=== PATIENT | male | born 1955 | race Caucasian/White ===

== ENCOUNTER → 2019-08-23 | Outpatient (CLI) | payer MEDICARE, OTHER ==
[~2019-08-23] MED LIST: ALAVERT10 MG PO; ASPIRIN EC81 M1 PO; ASPIRIN325; B-121000 MCG PO; CENTRUM SILVER1 EAC4 PO; COLACE 100 MG100 MG; FISH OIL 1,0001 EAC5 PO; GLUCOPHAGE500 MG PO; GLUCOTROL5 MG PO; JANUVIA100 MG PO; LISINOPRIL40 MG PO; LOVASTAT40 PO; MOBIC15 MG PO; NEXIUM 40 MG CA40 M1; NORVASC10 MG PO; OMEPRAZOLE 20 M20 M1 PO; OXYCODONE HCL 55 MG; PANCRELIPASE; PERCOCET 5-3251 EACH; XARELTO10 MG
--- NOTE | 2019-08-23 13:53 | 2DMMODE ---
[place] [address] 2 D/M-MODE ECHOCARDIOGRAM Name: ELIE RODRIGUEZ JR Room: [facility]#: [id number] Admission: 08/23/19 Attend Phys: Jeannette Cevallos Discharge: Date of : 51 Date of Service: 08/23/19 1353 Report #: [id number] THIS REPORT FOR: cc: Jeannette Machado NP, Stefany NP Liston, Michael J. MD [facility] ~ APPROVED REPORT Study performed: 08/23/2019 09:18:43 EXAM: Comprehensive 2D, Doppler, and color-flow Echocardiogram Patient Location: Out-Patient BSA: 1.74 HR: 95 bpm BP: 120/70 mmHg Other Information Study Quality: Fair Indications Carotid / Retinal occlusion 2D Dimensions IVSd: 10.31 (7-11mm) LVOT Diam: 20.53 (18-24mm) LVDd: 36.33 mm PWd: 10.45 (7-11mm) Ascending Ao: 29.84 (22-36mm) LVDs: 21.25 (25-40mm) Aortic Root: 26.18 mm Volumes Left Atrial Volume (Systole) LA ESV Index: 15.00 mL/m2 Aortic Valve AoV Peak Eligio.: 1.14 m/s AO Peak Gr.: 5.22 mmHg LVOT Max P.92 mmHg AO Mean Gr.: 3.02 mmHg LVOT Mean P.15 mmHg LVOT Max V: 1.22 m/s AO V2 VTI: 17.81 cm LVOT Mean V: 0.83 m/s ALYX (VTI): 3.66 cm2 LVOT V1 VTI: 19.73 cm Mitral Valve E/A Ratio: 0.52 [place] [address] 2 D/M-MODE ECHOCARDIOGRAM Name: ELIE RODRIGUEZ JR Room: [facility]#: [id number] Admission: 08/23/19 Attend Phys: Jeannette Cevallos Discharge: Date of : 51 Date of Service: 08/23/19 1353 Report #: [id number] MV Decel. Time: 232.06 ms MV E Max Eligio.: 0.56 m/s MV PHT: 67.30 ms MVA (PHT): 3.27 cm2 TDI E/Lateral E': 7.00 E/Medial E': 8.00 Medial E' Eligio.: 0.07 m/s Lateral E' Eligio.: 0.08 m/s Pulmonary Valve PV Peak Eligio.: 0.74 m/s PV Peak Gr.: 2.20 mmHg Left Ventricle The left ventricle is normal size. There is normal LV segmental wall motion. There is normal left ventricular wall thickness. Left ventricular systolic function is normal. LVEF is 65-70%. Grade I - abnormal relaxation pattern. Right Ventricle The right ventricle is normal size. The right ventricular systolic function is normal. Atria The left atrium size is normal. The right atrium size is normal. Aortic Valve Mild aortic valve sclerosis. No aortic regurgitation is present. There is no aortic valvular stenosis. Mitral Valve The mitral valve is normal in structure. There is no mitral valve regurgitation noted. No evidence of mitral valve stenosis. Tricuspid Valve The tricuspid valve is normal in structure. There is no tricuspid valve regurgitation noted. Pulmonic Valve The pulmonary valve is normal in structure. There is no pulmonic valvular regurgitation. Great Vessels The aortic root is normal in size. IVC is normal in size and collapses >50% [place] [address] 2 D/M-MODE ECHOCARDIOGRAM Name: ELIE RODRIGUEZ JR Room: [facility]#: [id number] Admission: 08/23/19 Attend Phys: Jeannette Cevallos Discharge: Date of : 51 Date of Service: 08/23/19 1353 Report #: [id number] Pericardium There is no pericardial effusion. <Conclusion> The left ventricle is normal size. There is normal left ventricular wall thickness. Left ventricular systolic function is normal. LVEF is 65-70%. Grade I - abnormal relaxation pattern. Mild aortic valve sclerosis. There is no aortic valvular stenosis. IVC is normal in size and collapses >50% with inspiration. <ELECTRONICALLY SIGNED> By: Boyd Mccrary MD, FACC 08/23/19 1353 1353 1353 Boyd Mccrary MD, FACC /INF
== END ==
LOC: M.CRD 08-18 12:12 → M.ULTRA 07:30 → M.CRD 08:00
PROVIDERS: ATTEND Nurse Practitioner Family
DX: I65.23 Occlusion and stenosis of bilateral carotid arteries (principal); I35.8 Other nonrheumatic aortic valve disorders; H34.02 Transient retinal artery occlusion, left eye

== ENCOUNTER 2019-08-31 14:35 | Emergency (ER) | payer MEDICARE, OTHER | END 2019-08-31 17:28 | disposition home or self-care (01) | LOC: M.ERS 14:35 | DX: R00.2 Palpitations (principal); K21.9 Gastro-esophageal reflux disease without esophagitis; I25.2 Old myocardial infarction; Z88.5 Allergy status to narcotic agent; Z79.899 Other long term (current) drug therapy; Z90.49 Acquired absence of other specified parts of digestive tract; Z96.642 Presence of left artificial hip joint ==

== ENCOUNTER → 2019-09-13 | Outpatient (CLI) | payer MEDICARE, OTHER ==
[~2019-09-13] MED LIST changes: +ASA81BEC PO; +CENTRUM COMPLE1 EACH PO; +FISH OIL 1,001000 M3 PO; +GLIPIZIDE 10 MG10 MG PO; +LOVASTATIN 20 M20 MG PO; +METFORMIN HCL500 M3; +NORVASC 2.5 MG2.5 M1
--- NOTE | 2019-09-13 17:25 | CARDNUC ---
[place] [address] CARDIAC NUCLEAR IMAGING REPORT Name: ELIE RODRIGUEZ JR Room: [facility]#: [id number] Admission: 09/13/19 Attend Phys: Shanita Salvador, Discharge: Date of : 51 Date of Service: 09/13/19 1725 Report #: [id number] THIS REPORT FOR: cc: Jeannette Machado Stefany RNP Liston, Michael J. MD [facility] ~ APPROVED REPORT Imaging Protocol: Stress Tc-99m/Rest Tc-99m 1 day Study performed: 09/13/2019 12:45:00 Indication: Abnormal EKG, Rapid heart rate. Patient Location: Out-Patient Stress Tech: Nicole Smith Stress Nurse: Mouna Vila RN Ht: 5 ft 4 in Wt: 137 lbs BSA: 1.67 m2 BMI: 23.51 Medical History Medical History: ABN EKG, Aortic Valve Stenosis, Palpitations, Rapid heart rate, CVA x2, Mild diastolic dysfunction, weak, fatigue, [place], Insulin, wheelchair use, current smoker, weight loss, unbalanced gait, knee surgery, hip surgery, HTN, HLD. Medications: Amlodipine, ASA 81 mg, Lovastatin. Allergies: Morphine. Cardiac Risk Factors: Age, Current Smoker, Diabetes (insulin), FHX of CAD, HTN, Hyperlipidemia, Aortic valve stenosis, diastolic dysfunction, tachycardia. Previous Cardiac Procedures: None Pretest Chest Pain Characteristics: No chest pain Exercise History: Sedentary Physical Disabilities: Wheelchair use, knee/Hip surgery, unbalanced gait, weak/fatigue. Meds Held (24 hrs): None Resting Data Rest SPECT myocardial perfusion imaging was performed in supine position 30 minutes following the intravenous injection of 9.0 mCi of Tc-99m Sestamibi. Time of rest injection: 13:05 The images were gated to evaluate regional wall motion and calculate left ventricular ejection fraction. Administration Route: [place] [address] CARDIAC NUCLEAR IMAGING REPORT Name: ELIE RODRIGUEZ JR Room: [facility]#: [id number] Admission: 09/13/19 Attend Phys: Shanita Salvador, Discharge: Date of : 51 Date of Service: 09/13/19 1725 Report #: [id number] Administration Site: Right Arm Pharmacologic Stress Pharmacologic stress test was performed by injecting Regadenoson 0.4 mg IV push over 10-15 seconds immediately followed by the intravenous injection of 31.1 mCi of Tc-99m Sestamibi. Time of stress injection: 14:40 Administration Route: IV Administration Site: Right Arm Heart Rate at time of stress injection: 130 bpm. Gated Stress SPECT was performed 40 minutes after stress injection. The images were gated to evaluate regional wall motion and calculate left ventricular ejection fraction. Prone imaging was performed. Stress Test Details Stress Test: Pharmacologic stress testing performed using 0.4 mg of regadenoson per 5 mL given IV over 10 seconds. Reason for pharmacologic stress test: Wheelchair use, knee/Hip surgery, unbalanced gait, weak/fatigue.. HR Max Heart Rate (APMHR): 155 bpm Resting HR: 114 bpm Target HR (85% APMHR): 131 bpm Max HR Achieved: 130 bpm % of APMHR: 83 Recovery HR: 128 bpm BP Resting BP: 122/72 mmHg Max BP: 102/62 mmHg Recovery BP: 137/68 mmHg ECG Resting ECG: Sinus Tachycardia Stress ECG: Sinus Tachycardia ST Change: None Arrhythmia: VPC's Recovery ECG: Sinus Tachycardia Recovery ST Change: None Recovery Arrhythmia: VPC's Clinical Reason for Termination: Completed protocol Stress Symptoms: Dyspnea, Lightheaded, Fatigue, Weakness, BM. Exercise duration: 00 min 00 [place] [address] CARDIAC NUCLEAR IMAGING REPORT Name: ELIE RODRIGUEZ JR Room: [facility]#: [id number] Admission: 09/13/19 Attend Phys: Shanita Salvador, Discharge: Date of : 51 Date of Service: 09/13/19 1725 Report #: [id number] Exercise capacity: 1.00 METs The patient tolerated walking Lexiscan stress protocol without significant cardiac symptoms. Nurse Comments A 63 year old male presented in a wheelchair for a sitting Lexiscan r/t ABN EKG, Tachycardia, Palpitations, weakness/fatigue. Test well tolerated. Recovery ended with continued tachycardia due to active bowels/BM. Patient was escorted by staff via wheelchair to Nuclear Medicine for imaging. Patient stated he felt good at that time. Stress ECG Conclusion The baseline twelve-lead EKG shows sinus tachycardia without significant ST segment or T wave abnormality. EKGs obtained during and post walking Lexiscan protocol shows sinus tachycardia without significant ST segment or T wave changes when compared to baseline. There were occasional unifocal premature ventricular complexes noted. Study Quality Study: Good Artifact: No artifact Study Data At rest, the left ventricular ejection fraction was 79%.. Post stress, the left ventricular ejection was 82%.. TID = 1.18. Perfusion Perfusion studies obtained at rest and post walking Lexiscan protocol show uniform uptake of the radioisotope throughout the myocardium without defect. Wall Motion Normal left ventricular wall motion. Nuclear Conclusion ECG Findings: negative for ischemia Clinical Findings: negative for ischemia Nuclear Findings: negative for ischemia Exercise Capacity: not assessed Left Ventricular Function: normal Risk Study: low Perfusion study show no defect to suggest infarct or ischemia. Left ventricular systolic function is normal on gated studies[place] [address] CARDIAC NUCLEAR IMAGING REPORT Name: ELIE RODRIGUEZ JR Room: [facility]#: [id number] Admission: 09/13/19 Attend Phys: Shanita Salvador, Discharge: Date of : 51 Date of Service: 09/13/19 1725 Report #: [id number] low risk study. <Conclusion> The baseline twelve-lead EKG shows sinus tachycardia without significant ST segment or T wave abnormality. EKGs obtained during and post walking Lexiscan protocol shows sinus tachycardia without significant ST segment or T wave changes when compared to baseline. There were occasional unifocal premature ventricular complexes noted. <ELECTRONICALLY SIGNED> By: Boyd Mccrary MD, FACC 09/13/19 1725 24 24 Boyd Mccrary MD, FACC /INF
== END ==
LOC: M.NUC 09-02 10:15
PROVIDERS: ATTEND Internal Medicine
DX: I35.8 Other nonrheumatic aortic valve disorders (principal); R00.0 Tachycardia, unspecified; E11.9 Type 2 diabetes mellitus without complications; E78.00 Pure hypercholesterolemia, unspecified; I10 Essential (primary) hypertension

== ENCOUNTER 2019-09-30 09:56 | Inpatient (IN) | payer MEDICARE, OTHER ==
[~2019-09-30] VITALS: Ht 162.6 cm; Wt 60.1 kg
--- NOTE | ~2019-09-30 | CON ---
[address] [address] CONSULTATION Name: ELIE RODRIGUEZ JR Room: [address] IN ..#: [id number] Admission: 09/30/19 Attend Phys: Mir Menezes Discharge: Date of : 51 Report #: [id number] THIS REPORT FOR: //name// cc: Jeannette Machado Stefany RNP ~ THIS REPORT FOR: //name// CC: Jeannette Villareal HISTORY OF PRESENT ILLNESS: This is a pleasant 63-year-old male with past medical history significant for hypertension, hyperlipidemia, diabetes, and chronic pancreatitis diagnosed back in 2005, who was presenting for evaluation of abdominal pain. The patient reports his symptoms began 6 months back when he began noticing increasing abdominal discomfort. The patient reports slowly progressive constipation as well during this time. Prior to that, he was going 4-5 bowel movements per day. The patient reports that along with the constipation, he has had progressive increase in abdominal pain. The patient modified his diet so that the pain may be better and this seemed to work for a few months. Last week, the patient began experiencing severe abdominal pain along with nausea and vomiting. The patient reports he had about 4-5 episodes every day in the last week. He denies any hematemesis or hematochezia. He denies any fevers or chills. The patient reports 100-pound weight loss over the last 2 years. His last evaluation for chronic pancreatitis was in 2005 when he was prescribed pancreatic enzymes, the patient could not take them because of the prohibitive cost. PAST MEDICAL HISTORY: Diabetes, hypertension, and hyperlipidemia. PAST SURGICAL HISTORY: Appendectomy, cholecystectomy, hip replacement, knee surgery, and vasectomy. SOCIAL HISTORY: The patient has a 64-mlwo-nvjx history of smoking. He is an active smoker. He denies alcohol or recreational drug use. FAMILY HISTORY: No family history of colon cancer or Reynolds-related neoplasia. REVIEW OF SYSTEMS: A comprehensive 10-point review of systems is negative except for what is mentioned in the HPI. PHYSICAL EXAMINATION: GENERAL: The patient is alert, awake, and oriented x 3. HEENT: Pupils are equal, round, reactive to light and accommodation. Mucous membranes are moist. There is no congestion. LUNGS: Clear to auscultation bilaterally. CARDIOVASCULAR: Rate and rhythm regular, S1, S2 present. ABDOMEN: Soft. There is no distention, guarding, [place] [address] CONSULTATION Name: ELIE RODRIGUEZ JR Room: [address]#: [id number] Admission: 09/30/19 Attend Phys: Mir Menezes Discharge: Date of : 51 Report #: [id number] EXTREMITIES: Warm, well perfused. There is no edema. SKIN: Warm and dry. LABORATORY DATA: Hemoglobin 15.6, hematocrit 43.2, and platelet count 336, WBC count 12.5. Sodium 139, potassium 3.0, chloride 96, bicarbonate 24, BUN 13, and creatinine 1. Hemoglobin A1c 7.1, total bilirubin 0.5, AST 11, ALT 18, alkaline phosphatase 83, and lipase 78. IMAGING: CT abdomen and pelvis, atrophic right kidney, 2.8 cm left renal cyst, chronic pancreatitis, 3.2 cm cystic mass in the pancreatic body tail junction, represents pancreatic pseudocyst or IPMN with distal ectasia of pancreatic duct. ASSESSMENT AND PLAN: A pleasant 63-year-old gentleman with history of chronic pancreatitis, who is presenting with worsening abdominal pain and weight loss. The patient found to have a pancreatic cyst along with atrophy of the distal pancreas. 1. Chronic pancreatitis. 2. A 100-pound weight loss. 3. Pancreatic cyst. 4. Pancreatic stricture. I would recommend checking INR, B12, and vitamin D levels. The patient will need to be started on Lyrica for pain control as well as pancreatic enzymes. I would start him on a low fat diet and see if he is able to tolerate it. The patient will need to be referred for an EUS and ERCP, which we can arrange for an outpatient basis. Thank you for this consultation. By: 1020 [id number] Hall MD /calos
[2019-09-30 10:14] VITALS: BP 134/74
[2019-09-30 10:34] LABS: ABSOLUTE BASOPHILS 0.2 thou/uL (0.0-0.2); ABSOLUTE LYMPHOCYTES 1.6 thou/uL (0.8-5.3); ABSOLUTE MONOCYTES 0.4 thou/uL (0.0-1.2); ABSOLUTE NEUTROPHILS 10.4 thou/uL (1.6-8.1); BASOPHILS 1.5 %; EOSINOPHILS 0.1 %; HEMATOCRIT 43.2 % (42.0-52.0); HEMOGLOBIN 15.6 gm/dL (14.0-18.0); LYMPHOCYTES 12.5 %; MCV 89.1 fL (80.0-100.0); MONOCYTES 2.9 %; MPV 8.3 fl. (7.2-11.1); NUCLEATED RBCS 0 /100WBC; PLATELET COUNT* 336 thou/uL (150-400); RBC 4.85 mil/uL (4.50-6.00); RDW-CV 13.6 % (10.5-14.5); WBC 12.5 thou/uL (4.0-11.0)
[2019-09-30 10:44] LABS: CALCIUM 7.4 mg/dL (8.5-10.1)
[2019-09-30 10:49] LABS: ALBUMIN 3.9 g/dL (3.4-5.0); TOTAL BILIRUBIN 0.5 mg/dL (<0.1-1.0); TOTAL PROTEIN 7.8 g/dL (6.4-8.2)
[2019-09-30 12:18] LABS: URINE BILIRUBIN NEGATIVE (Negative); URINE BLOOD NEGATIVE (Negative); URINE CLARITY CLEAR; URINE COLOR YELLOW; URINE GLUCOSE-RANDOM 2+ (Negative); URINE KETONES 2+ (Negative); URINE LEUKOCYTES-REFLEX NEGATIVE (Negative); URINE NITRITE-REFLEX POSITIVE (Negative); URINE PROTEIN TRACE (Negative); URINE SPECIFIC GRAVITY <= 1.005 (1.005-1.030); URINE UROBILINOGEN 0.2 E.U./dl (0.2-1.0)
[2019-09-30 12:24] LABS: SQUAMOUS NONE SEEN /LPF (0-3); URINE WBC-REFLEX None Seen /HPF (0-5)
[2019-09-30 12:25] LABS: CASTS None Seen /LPF (None Seen); CRYSTALS None Seen /LPF (None Seen); MUCUS None Seen strn/LPF (None Seen); URINE RBC None Seen /HPF (0-2)
[2019-09-30 14:04] VITALS: BP 133/81
--- NOTE | 2019-09-30 15:50 | EKG ---
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: : 1955 Requested By: Nicolas Barrios Order Number: [id number] MD: Elton Wilson Measurements Intervals [place] Rate: 123 P: 66 ME: 157 QRS: 171 QRSD: 74 T: 5 QT: 324 QTc: 464 Interpretive Statements Sinus tachycardia right axis late transition Baseline wander in lead(s) V2 Compared to ECG 08/31/2019 14:40:15 Incomplete right bundle-branch block no longer present Electronically Signed On 09-30-2019 15:50:25 CDT by Elton Wilson [email or web address] <ELECTRONICALLY SIGNED> By: Elton Wilson MD, FAC 09/30/19 1550 1016 1016 Elton Wilson MD, FAC /EPI
[2019-09-30 16:57] LABS: ANION GAP 19 mmol/L (7-16); CHLORIDE 96 mmol/L (98-107); CHOLESTEROL 117 mg/dL (<200); CO2 24 mmol/L (21-32); HDL CHOLESTEROL 49 mg/dL (>40); LDL CHOLESTEROL 56 mg/dL (<100); SODIUM 139 mmol/L (136-145); TC:HDL 2.4 Ratio (Not establshd); TRIGLYCERIDE 62 mg/dL (<150); VLDL 12 mg/dL (<40)
[2019-09-30 17:06] LABS: SERUM ASSESSMENT Clear
[2019-09-30 20:20] VITALS: BP 140/86
[2019-10-01 08:34] VITALS: BP 134/78
--- NOTE | 2019-10-01 17:13 | NUR ---
PT A&Ox4. VITALS STABLE. IV PATENT. POTASSIUM REPLACED. FENTANYL AND OXY GIVEN ORDERED. PT RATING PAIN 7-9/10, WHEN REASSESSING PT IS RESTING IN BED CALMLY. TOLERATING REGULAR DIET. DENIED N/V. CALL LIGHT WITHIN REACH. WILL CONTINUE TO MONITOR.
[2019-10-01 20:06] VITALS: BP 146/79
[2019-10-02 05:36] LABS: GLYCOHEMOGLOBIN (HGB A1C) 9.8 % (4.8-5.6)
--- NOTE | 2019-10-02 06:20 | NUR ---
PT A&OX4, ON ROOM AIR, VSS, PT UP AD UZIEL - PT EDUCATED ON FALL PRECAUTIONS, IV FLUIDS INFUSING ORDERED, PAIN MEDS REQUESTED AND GIVEN ORDERED - LAST DOSE IV PAIN MED GIVEN AT 2235. HOURLY ROUNDINGS COMPLETED, WILL CONTINUE TO MONITOR.
[2019-10-02 08:45] VITALS: BP 149/80
[2019-10-02] MEDS ORDERED: PANCRELIPASE PO ×2 (11:12→11:29)
[2019-10-02] MEDS ORDERED: PHENERGAN 25 MG25 M1 PO ×2 (11:12→11:27)
[2019-10-02] MEDS ORDERED: KEFLEX500 M1 PO ×2 (11:12→11:30)
[2019-10-02] MEDS ORDERED: LYRICA 50 MG50 MG PO (11:12)
[2019-10-02] MEDS ORDERED: OXYCODONE HCL 55 MG PO ×2 (11:12→11:26)
[2019-10-02 11:23] VITALS: BP 149/80
[2019-10-02] MEDS ORDERED: PREGABALIN50 MG PO (11:25)
--- NOTE | 2019-10-02 13:16 | NUR ---
PT DISCHARGED TO HOME BY WHEELCHAIR WITH NURSING STAFF AND . IV OUT. PAPER SCRIPTS GIVEN WITH CARE NOTES. IV PAIN MEDICATION GIVEN TO PT PRIOR TO DISCHARGE PER ORDERS. PERSONAL ITEMS SENT WITH PT. PT STABLE UPON DISCHARGE
== END 2019-10-02 13:23 | disposition home or self-care (01) | DRG 392 ==
LOC: M.ERS 09:56 → M.TBA-ER 12:15 → M.ORTHSURG 12:15
PROVIDERS: Family Medicine; ADMIT Internal Medicine; ATTEND Internal Medicine
DX: K29.00 Acute gastritis without bleeding (principal); N39.0 Urinary tract infection, site not specified; K86.1 Other chronic pancreatitis; K86.89 Other specified diseases of pancreas; E03.9 Hypothyroidism, unspecified; E78.00 Pure hypercholesterolemia, unspecified; E11.9 Type 2 diabetes mellitus without complications; I10 Essential (primary) hypertension; G47.30 Sleep apnea, unspecified; Z96.642 Presence of left artificial hip joint; I25.2 Old myocardial infarction; Z79.84 Long term (current) use of oral hypoglycemic drugs; Z79.82 Long term (current) use of aspirin; Z79.899 Other long term (current) drug therapy; Z88.5 Allergy status to narcotic agent; Z90.49 Acquired absence of other specified parts of digestive tract; Z03.818 Encounter for observation for suspected exposure to other biological agents ruled out

== ENCOUNTER 2019-10-26 16:14 | Inpatient (IN) | payer MEDICARE, OTHER ==
[~2019-10-26] VITALS: Ht 162.6 cm; Wt 65.8 kg
--- NOTE | ~2019-10-26 | PROC ---
[address] [address] PROCEDURE REPORT Name: ELIE RODRIGUEZ JR Room: [address] IN M.R.#: [id number] Admission: 10/26/19 Attend Phys: Elvis Domingo MD Discharge: 10/30/19 Date of : 51 Report #: [id number] THIS REPORT FOR: //name// cc: Jeannette Machado Stefany RNP ~ THIS REPORT FOR: //name// For GI report, please see the Provation report in Perceptive 7 content. By: [id number] Records Staff TORRES /KAITLYNN
[~2019-10-26 16:14] MED LIST changes: +KEFLEX500 M1 PO; +LYRICA 50 MG50 MG PO; -METFORMIN HCL500 M3; +METFORMIN HCL500 M3 PO; -NORVASC 2.5 MG2.5 M1; +NORVASC 2.5 MG2.5 M1 PO; +OXYCODONE HCL 55 MG PO; +PANCRELIPASE PO; +PHENERGAN 25 MG25 M1 PO; +PREGABALIN50 MG PO
[2019-10-26 16:27] VITALS: BP 155/81
[2019-10-26 17:09] LABS: ABSOLUTE BASOPHILS 0.2 thou/uL (0.0-0.2); ABSOLUTE EOSINOPHILS 0.2 thou/uL (0.0-0.7); ABSOLUTE LYMPHOCYTES 2.6 thou/uL (0.8-5.3); ABSOLUTE MONOCYTES 0.7 thou/uL (0.0-1.2); ABSOLUTE NEUTROPHILS 8.2 thou/uL (1.6-8.1); BASOPHILS 1.3 %; HEMATOCRIT 40.7 % (42.0-52.0); HEMOGLOBIN 14.5 gm/dL (14.0-18.0); MCH 31.4 pg (26.0-34.0); MCHC 35.5 g/dL (28.0-37.0); MCV 88.6 fL (80.0-100.0); MONOCYTES 5.8 %; MPV 7.9 fl. (7.2-11.1); NUCLEATED RBCS 0 /100WBC; PLATELET COUNT* 324 thou/uL (150-400); POLYS 68.9 %; RDW-CV 13.8 % (10.5-14.5)
[2019-10-26 17:13] LABS: AMP/METHAMP Negative (Negative); BARBITURATES Negative (Negative); BENZODIAZEPINES Negative (Negative); COCAINE Negative (Negative); METHADONE Negative (Negative); OPIATES Negative (Negative); PCP Negative (Negative); THC Negative (Negative)
[2019-10-26 17:21] LABS: CALCIUM 7.3 mg/dL (8.5-10.1); CREATININE 0.8 mg/dL (0.6-1.3)
[2019-10-26 17:24] LABS: POTASSIUM 2.8 mmol/L (3.5-5.1)
[2019-10-26 17:26] LABS: ALBUMIN 3.6 g/dL (3.4-5.0); TOTAL BILIRUBIN 0.5 mg/dL (<0.1-1.0); TOTAL PROTEIN 7.2 g/dL (6.4-8.2)
[2019-10-26 20:20] VITALS: BP 135/71
[2019-10-27] VITALS: BP 168/81
[2019-10-27 04:00] VITALS: BP 155/77
--- NOTE | 2019-10-27 05:57 | NUR ---
PATIENT UP FROM ER VIA CART AT 2019. PT C/O ABD PAIN THAT STARTED LAST NIGHT. PT ABLE TO DO ALL ADL'S BUT FEELS WEEK AND SAID HE WOULD USE A URINAL AND CALL FOR ASSISTANCE TO BATHROOM IF NEEDED. PT VOIDS YELLOW URINE PER URINAL. POTASSIUM IV INFUSED THEN CIPRO AND FLAGYL PER DR ORDER. FLUIDS NOW INFUSING AT 100ML/HR PER DR ORDER. PT GIVEN TORADOL AND LIDODERM PATCH SHORTLY AFTER ARRIVAL FOR PAIN. PT DENIES PAIN THE REST OF THE NIGHT. PT ORIENTED TO ROOM/POLICIES AND VERBALIZES UNDERSTANDING. FREQUENTLY USED ITEMS AND CALL LIGHT WITHIN REACH. SIDERAILS UPX2. WILL CONTINUE TO MONITOR.
[2019-10-27 07:30] VITALS: BP 146/79
--- NOTE | 2019-10-27 09:15 | NUR ---
CM SPOKE TO THE PT TO DISCUSS HIS HOME SITUAION, DISCHARGE PLANNING, AND TO INFORM OF THE ROLE OF CM. PT A&O, INDEPENDENT WITH ADL'S, AND ACTIVE. PT RESIDES AT HOME WITH SPOUSE. PT OWNS 0 DME. PT MEZA 0 HX OF HH OR SNF. CM WILL REMAIN AVAILABLE TO ASSIST AND FOLLOW NEEDED.
[2019-10-27 12:00] VITALS: BP 153/82
--- NOTE | 2019-10-27 13:03 | EKG ---
[place] [address] ELECTROCARDIOGRAM REPORT Name: ELIE RODRIGUEZ JR Room: [address] ADM IN M.R.#: [id number] Admission: 10/26/19 Attend Phys: Elvis Domingo, Discharge: Date of : 51 Date of Service: 10/26/19 1624 Report #: [id number] THIS REPORT FOR: //name// [facility] ED Test Date: 2019-10-26 Test Time: 16:24:22 Pat Name: ELIE MICHAEL Department: Room: [facility] Gender: M Associate Data Scientist: : 1955 Requested By: Faby Whaley Order Number: [id number] MD: Boyd Mccrary Measurements Intervals [place] Rate: 123 P: 67 NC: 157 QRS: 205 QRSD: 73 T: 43 QT: 305 QTc: 437 Interpretive Statements Sinus tachycardia Right axis deviation Borderline low voltage, extremity leads Abnormal R-wave progression, late transition Compared to ECG 09/30/2019 10:16:51 Right-axis deviation now present Electronically Signed On 10-27-2019 13:02:55 CDT by Boyd Mccrary [email or web address] <ELECTRONICALLY SIGNED> By: Boyd Mccrary MD, FACC 10/27/19 1302 1624 1624 Boyd Mccrary MD, FACC /EPI
[2019-10-27 13:58] LABS: MAGNESIUM 0.5 mg/dL (1.8-2.4); POTASSIUM 2.7 mmol/L (3.5-5.1)
[2019-10-27 15:25] VITALS: BP 129/74
[2019-10-27 20:00] VITALS: BP 147/57
[2019-10-27 20:46] LABS: MAGNESIUM 2.4 mg/dL (1.8-2.4)
[2019-10-28 04:00] VITALS: BP 130/75
[2019-10-28 07:56] VITALS: BP 137/79
--- NOTE | 2019-10-28 09:44 | NUR ---
ASSUMED CARE OF PT THIS AM AROUND 0715- SWIMMER IN PLACE ORDERED, TRACING SR- UPON ASSESSMENT PT NOTED TO BE RESTING IN BED, WATCHING TV- PT A&O X4- CONT OF B/B- SBA WITH TRANSFERS FOR SAFETY- LCTA, RESP EVEN AND UN-LABORED- VSS, O2 SAT 96% ON RA- ABD SOFT/TENDER, BS X4 QUADS- LAST BM REPORTED X2 DAYS AGO- CLEAR LIQUIDS IN PLACE INDICATED-PT REPORTS NAUSEA THIS AM WITH PRN PROMETHAZINE GIVEN THIS AM AT 0827- IV NOTED TO RIGHT AC INTACT, IVF INFUSSING PRESCRIBED- IV ABT GIVEN THIS AM PRESCRIBED- PT REPORTS PAIN TO UPPER MID ABD THIS AM 5, PRN HYDROCODONE GIVEN AT 0827- CALL LIGHT AND PERSONAL BELONGINGS WITH IN REACH- PT MAKES NEEDS KNOWN- ALL NEEDS MET AT THIS TIME-WCTM
[2019-10-28 12:01] VITALS: BP 126/76
[2019-10-28 13:16] LABS: URINE BILIRUBIN NEGATIVE (Negative); URINE BLOOD NEGATIVE (Negative); URINE CLARITY CLEAR; URINE COLOR YELLOW; URINE GLUCOSE-RANDOM 3+ (Negative); URINE KETONES NEGATIVE (Negative); URINE LEUKOCYTES NEGATIVE (Negative); URINE NITRITE NEGATIVE (Negative); URINE PROTEIN NEGATIVE (Negative); URINE UROBILINOGEN 0.2 E.U./dl (0.2-1.0)
[2019-10-28 15:46] VITALS: BP 126/67
[2019-10-28 20:00] VITALS: BP 136/72
[2019-10-29] VITALS: BP 119/60
[2019-10-29 04:00] VITALS: BP 137/73; BP 141/73
[2019-10-29 05:07] LABS: ABSOLUTE BASOPHILS 0.1 thou/uL (0.0-0.2); ABSOLUTE EOSINOPHILS 0.3 thou/uL (0.0-0.7); ABSOLUTE LYMPHOCYTES 2.3 thou/uL (0.8-5.3); ABSOLUTE MONOCYTES 0.6 thou/uL (0.0-1.2); ABSOLUTE NEUTROPHILS 6.4 thou/uL (1.6-8.1); BASOPHILS 0.9 %; EOSINOPHILS 2.7 %; HEMATOCRIT 32.5 % (42.0-52.0); LYMPHOCYTES 23.8 %; MCH 32.4 pg (26.0-34.0); MCHC 35.9 g/dL (28.0-37.0); MCV 90.1 fL (80.0-100.0); MONOCYTES 6.4 %; NUCLEATED RBCS 0 /100WBC; POLYS 66.2 %; RDW-CV 14.2 % (10.5-14.5); WBC 9.6 thou/uL (4.0-11.0)
[2019-10-29 05:16] LABS: HEMOGLOBIN 11.7 gm/dL (14.0-18.0); PLATELET COUNT* 245 thou/uL (150-400)
[2019-10-29 05:28] LABS: ALBUMIN 2.7 g/dL (3.4-5.0); CREATININE 0.6 mg/dL (0.6-1.3); POTASSIUM 3.4 mmol/L (3.5-5.1); TOTAL BILIRUBIN 0.2 mg/dL (<0.1-1.0); TOTAL PROTEIN 5.6 g/dL (6.4-8.2)
[2019-10-29 06:12] LABS: CALCIUM 5.9 mg/dL (8.5-10.1)
[2019-10-29 06:52] LABS: ESR (SEDRATE) 5 mm/hr (0-20)
[2019-10-29 07:34] VITALS: BP 128/67
--- NOTE | 2019-10-29 08:38 | NUR ---
ASSUMED CARE OF PT THIS AM AROUND 0715- IMPORT/EXPORT FREIGHT FORWARDER IN PLACE ORDERED, TRACING SR- UPON ASSESMENT PT NOTED TO BE RESTING IN BED, WATCHING TV- PT A&O X4- CONT OF B/B- UP AD-UZIEL IN ROOM, STEADY GAIT NOTED- LCTA, RESP EVEN AND UN-LABORED- VSS, O2 SAT 97% ON RA- ABD SOFT/ROUND/NON-TENDER, BS X4 QUADS HYPOCATIVE- PT REPORTS COUPLE BM THROUGHOUT NIGHT- IV NOTED TO RIGHT AC INTACT, IVF INFUSSING PRESCRIBED- IV ABT GIVEN THIS AM- CALCIUM NOTED TO BE CL AT 3.4, ORDERS RECEIVED AND GIVEN FOR CALCIUM GLUCONATE IV X1- K+ NOTED AT 3.4 AND REPLACED THIS AM PO PER PROTOCOL- CLEAR LIQUIDS IN PLACE INDICATED- PT RATES PAIN 7/10 TO UPPER ABD, PRN HYDROCODONE GIVEN THIS AM AT 0820- CALL LIGHT AND PERSONAL BELONGINGS WITH IN REACH- PT MAKES NEEDS KNOWN- ALL NEEDS MET AT THIS TIME-WCTM
[2019-10-29 12:16] VITALS: BP 131/77
[2019-10-29 13:39] LABS: CALCIUM 7.3 mg/dL (8.5-10.1); POTASSIUM 3.6 mmol/L (3.5-5.1)
[2019-10-29 16:04] VITALS: BP 147/78
[2019-10-29 20:00] VITALS: BP 144/92
[2019-10-30] VITALS: BP 121/58
[2019-10-30 04:00] VITALS: BP 166/80
[2019-10-30 07:39] VITALS: BP 141/72
--- NOTE | 2019-10-30 08:34 | NUR ---
ASSUMED CARE OF PT THIS AM AROUND 0715- BUSINESS SYSTEMS LEAD IN PLACE ORDERED, TRACING SR- UPON ASSESSMENT PT NOTED TO BE GROGGY- PT A&O X4, FORGETFULL- CONT OF B/B- UP AD-UZIEL IN ROOM, STEADY GAIT NOTED- LCTA, RESP EVEN AND UN-LABORED- VSS, O2 SAT 94% ON RA- ABD SOFT/ROUND/TENDER, BS X4 QUADS- BM REPORTED THIS AM- PT REPORTED TO BE CLEAR FOR EGD/COLONOSCOPY THIS AM- IV NOTED TO RIGHT AC INTACT WITH IVF INFUSSING PRESCRIBED- PT REPORTS PAIN / THIS AM TO UPPER MID ABD- PT TAKEN THIS AM AT 0800 FOR EGD AND COLON- ALL NEEDS MET AT THIS TIME-WCTM
[2019-10-30 13:08] VITALS: BP 138/72
[2019-10-30] MEDS ORDERED: LORCET 5-325 M1 EACH PO (14:16)
[2019-10-30] MEDS ORDERED: AUGMENTIN 875-1 EACH PO (14:17)
[2019-10-30 14:18] VITALS: BP 138/72
--- NOTE | 2019-11-01 14:07 | PATH ---
[address] [address] PATHOLOGY RPT PROCEDURE Name: ISRA PARRY JR Room: [address] IN [facility]#: [id number] Admission: 10/26/19 Date of : 51 Discharge: 10/30/19 Report #: [id number] Path Case #: [id number] [facility] Accession Number: [id number] . 01 Material submitted: . PART A: small bowel - SMALL BOWEL BIOPSY PART B: cecum - CECAL POLYP . 01 Clinical history: . BACTERIAL INTESTINAL INFECTION, UNSPECIFIED SIRS OF NON-INFECTIOUS ORIGIN WITHOUT ACUTE ORGAN DYSFUNCTION, CHRONIC DIARRHEA AND WEIGHT LOSS . 02 Diagnosis: A. Small bowel biopsy: - Moderate nonspecific active duodenitis, negative for granulomas, viral inclusions, significant intraepithelial lymphocytosis and dysplasia/adenomatous change. See comment. . B. Cecal polyp: - Tubular adenoma, negative for high-grade dysplasia. (MAJO:pit 11/01/2019) QTP 11/01/2019 1040 Local . 02 Comment: The small bowel biopsy (A) shows benign duodenal mucosa with active inflammation apparent in one of the fragments where there is villous atrophy attributable to the inflammation and the other segments do not have villous atrophy and none show significant intraepithelial lymphocytosis and therefore celiac/sprue is unlikely. (MAJO:pit 11/01/2019) . 02 Electronically signed: . Sky Pickens MD, Pathologist NPI- [id number] . 01 Gross description: . A. The specimen is received in formalin, labeled "Isra Parry Jr., small bowel biopsy for chronic diarrhea and weight loss". Received are three segments of pale astudillo soft tissue ranging in size from 0.2 to 0.5 cm in maximum dimensions. The specimen is submitted entirely in cassette A1. . B. The specimen is received in formalin, labeled "Isra Parry Jr., cecal polyp". Received is a segment of pale astudillo soft tissue measuring 0.3 cm in maximum dimensions. The specimen is submitted entirely in cassette B1. (CAA; 10/31/2019) QA/[facility] 10/31/2019 [facility] Local . [address] [place] [address] PATHOLOGY RPT PROCEDURE Name: ISRA PARRY JR Room: [address] IN M.R.#: [id number] Admission: 10/26/19 Date of : 51 Discharge: 10/30/19 Report #: [id number] Path Case #: [id number] Pathologist provided ICD-10: K29.80, D12.0 . 02 CPT . 486698, 892301 Specimen Comment: A courtesy copy of this report has been sent to [phone], [phone] Specimen Comment: [phone], Specimen Comment: Report sent to ,DR DOOLEY / DR MCCOY Specimen Comment: A duplicate report has been generated due to demographic updates. Performed at: 01 [facility] [place] [id number] [facility] [address] [place], [place] [id number] MD Rayshawn Lmeus MD Phone: [phone] Performed at: 02 [facility] [place] [address], [place], [place] [id number] MD Sky Pickens MD Phone: [phone]
== END 2019-10-30 14:37 | disposition home or self-care (01) | DRG 372 ==
LOC: M.ERS 16:14 → M.TBA-ER 18:58 → M.2W 18:58 → M.TBA-ER 20:48 → M.2W 20:49
PROVIDERS: Internal Medicine; Internal Medicine Gastroenterology; Nurse Practitioner Family; ADMIT Internal Medicine; ATTEND Internal Medicine
PROC: 0DB98ZX Excision of Duodenum, Via Natural or Artificial Opening Endoscopic, Diagnostic (ICD-10-PCS; principal; 2019-10-30)
PROC: 0DBH8ZZ Excision of Cecum, Via Natural or Artificial Opening Endoscopic (ICD-10-PCS; principal; 2019-10-30)
DX: A04.9 Bacterial intestinal infection, unspecified (principal); R65.10 Systemic inflammatory response syndrome (SIRS) of non-infectious origin without acute organ dysfunction; K86.1 Other chronic pancreatitis; K86.2 Cyst of pancreas; D12.0 Benign neoplasm of cecum; E87.6 Hypokalemia; E83.42 Hypomagnesemia; E78.00 Pure hypercholesterolemia, unspecified; Z96.642 Presence of left artificial hip joint; K90.0 Celiac disease; K29.80 Duodenitis without bleeding; K21.9 Gastro-esophageal reflux disease without esophagitis; R19.7 Diarrhea, unspecified; R63.4 Abnormal weight loss; R12 Heartburn; K64.4 Residual hemorrhoidal skin tags; E11.9 Type 2 diabetes mellitus without complications; Z20.828 Contact with and (suspected) exposure to other viral communicable diseases; Z90.49 Acquired absence of other specified parts of digestive tract; Z79.899 Other long term (current) drug therapy; I25.2 Old myocardial infarction; Z79.82 Long term (current) use of aspirin; Z79.84 Long term (current) use of oral hypoglycemic drugs; Z88.5 Allergy status to narcotic agent